=== PATIENT | female | born 1955 | race Caucasian/White ===

== ENCOUNTER 2021-06-24 13:19 | Emergency (ER) | payer MEDICARE, OTHER ==
--- NOTE | 2021-06-24 13:55 | EDM.PDOC ---
<Jelly Mclean - Last Filed: 06/24/21 14:54> ED HPI GENERAL MEDICAL PROBLEM - General Chief Complaint: General Stated Complaint: weakness Time Seen by Provider: 06/24/21 13:42 Source of Information: Reports: Patient, Family (Sister ) History Limitations: Reports: No Limitations - History of Present Illness INITIAL COMMENTS - FREE TEXT/NARRATIVE: 66F w/o medical history presents with 12 hours of new onset dizziness, lightheaded. No trauma or fevers. Sudden onset at 0100 this morning, remained at 0400am, unrelenting. Most severe when she has a position change, does occur when not changing position. Denies vomiting, palpitation, abdominal pain, dysuria, hematochezia, or melena. She does not take any prescription medications, multiple vitamin supplements. No abnormal findings at follow up with PCP one month ago. She is accompanied by her sister. 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 No tobacco or drug use. Completed 30 days of doxycycline last week for two patches of new onset pale skin changes, no final diagnosis of that condition. Onset: Today, Sudden Onset Date: 06/24/21 Onset Time: 01:00 Duration: Constant Location: Reports: Head - Related Data Allergies Allergy/AdvReac Type Severity Reaction Status Date / Time No Known Allergies Allergy Verified 06/24/21 14:14 Home Meds: Home Meds . [No Known Home Meds] 06/24/21 [History] Past Medical History - Past Health History Medical/Surgical History: Denies Medical/Surgical History - Past Surgical History Musculoskeletal Surgical History: Reports: Other (See Below) (Right ankle surgery) ED ROS GENERAL - Review of Systems Review Of Systems: See Below Constitutional: Reports: No Symptoms. Denies: Weakness, Fatigue HEENT: Denies: Ear Pain, Eye Pain, Hearing Loss, Nosebleed, Nose Pain, Throat Pain Respiratory: Reports: No Symptoms. Denies: Shortness of Breath Cardiovascular: Reports: Lightheadedness. Denies: Chest Pain, Claudication, Dyspnea on Exertion, Palpitations, Syncope Endocrine: Denies: Fatigue GI/Abdominal: Denies: Abdominal Pain, Bloody Stool, Hematochezia, Melena, Nausea : Denies: Dysuria, Flank Pain Musculoskeletal: Denies: Neck Pain, Shoulder Pain, Back Pain, Joint Pain Skin: Denies: Cyanosis, Jaundice, Rash Neurological: Reports: Dizziness, Difficulty Walking. Denies: Confusion, Paresthesia, Syncope, Trouble Speaking Psychiatric: Denies: Agitation ED EXAM, GENERAL - Physical Exam Exam: See Below Exam Limited By: No Limitations General Appearance: Alert, WD/WN, No Apparent Distress, Anxious Ears: Hearing Grossly Normal, Normal TMs Ear Exam: Bilateral Ear: TM normal Nose: Normal Inspection Throat/Mouth: Normal Inspection Head: Atraumatic, Normocephalic Neck: Normal Inspection, Supple, Non-Tender Respiratory/Chest: No Respiratory Distress, Lungs Clear, Normal Breath Sounds, No Accessory Muscle Use Cardiovascular: Normal Peripheral Pulses, Regular Rate, Rhythm, Bradycardia (Sinus on EKG ). No: No JVD, No Murmur Peripheral Pulses: 2+: Radial (L), Radial (R) GI/Abdominal: Soft, Non-Tender Back Exam: Normal Inspection Extremities: Normal Inspection, Normal Range of Motion Neurological: Alert, Oriented, CN II-XII Intact, Normal Cognition, Other (Small beats of nystagus when looking to extreme left ) Psychiatric: Normal Affect, Anxious Skin Exam: Warm, Dry #1 Interpretation EKG Date: 06/24/21 Time: 14:34 Rhythm: NSR Rate (Beats/Min): 60 Only: Normal P-Wave: Enlarged QRS: Normal ST-T: Normal QT: Normal Comparison: NA - No Prior EKG (Low voltage, sinus rhythm) Course - Re-Assessments/Exams Free Text/Narrative Re-Assessment/Exam: 06/24/21 14:36 No acute changes on EKG. CBC w/o anemia or leukocytosis. Minda-Halpike does not induce nystagmus or significant worsening of condition. Free Text/Narrative Re-Assessment/Exam: 06/24/21 14:54 CMP normal. UA without signs of infection. Trial of meclizine, declines zofran. Free Text/Narrative Re-Assessment/Exam: 06/24/21 14:57 orthostatic vitals: 110/77 --> 103/76 --> 113/70 Departure - Departure Time of Disposition: 14:58 Disposition: Home, Self-Care 01 Condition: Good Clinical Impression: Benign paroxysmal positional vertigo - Discharge Information *PRESCRIPTION DRUG MONITORING PROGRAM REVIEWED*: No *COPY OF PRESCRIPTION DRUG MONITORING REPORT IN PATIENT ADAL: No Instructions: How to Perform the Fox Maneuver, Benign Positional Vertigo Forms: ED Department Discharge Additional Instructions: Follow up with your primary care provider next week if symptoms do not improve. You blood work today does not show Anemia, low electrolytes, or poorly functioning kidneys' or liver. Your urine does not show infection. You can try over the counter Meclizine. Try home Eply maneuvers. Return to Emergency Department over the weekend if fevers > 102F do not respond to Tylenol, severe chest pain, severe headache pain with vision changes, or unable to control/move limbs. - Assessment/Plan Assessment:: Vague complain of dizziness with no other symptoms or acute changes in medical condition. BPPV vs electrolyte abnormality, dehydration, early infection, cardiac arrhythmia. Plan: EKG, CMP, CBC, UA reviewed and negative for abnormalities requiring further evaluation. Orthostatic vitals without changes greater than 10mm Hg. Trial Meclizine. Patient safe for discharge home, follow up with PCP. Patient provided with education on home Eply maneuvers. <Sage Keys - Last Filed: 06/24/21 16:16> Course - Vital Signs Last Recorded V/S: Last Vital Signs Temp 99.2 F 06/24/21 13:42 Pulse 66 06/24/21 13:42 Resp 16 06/24/21 13:42 BP 118/84 06/24/21 13:42 Pulse Ox 98 06/24/21 13:42 Orthostatic Blood Pressure [ 103/76 Standing] Orthostatic Blood Pressure [ 110/77 Sitting] Orthostatic Blood Pressure [ 113/70 Supine] - Orders/Labs/Meds Orders: Active Orders 24 hr Category Date Time Status Discharge Patient [ADT] Routine ADT 06/24/21 15:07 Ordered Labs: Laboratory Tests 06/24/21 06/24/21 06/24/21 Range/Units 13:22 14:17 14:17 WBC 5.3 (5.0-10.0) 10^3/uL RBC 4.63 (4.2-5.4) 10^6/uL Hgb 12.8 (12.0-16.0) g/dL Hct 39.4 (37.0-47.0) % MCV 85.1 (80-100) fL MCH 27.6 (27.0-34.0) pg MCHC 32.5 L (33.0-35.0) g/dL Plt Count 232 (150-450) 10^3/uL Sodium 143 (136-145) mmol/L Potassium 3.9 (3.5-5.1) mmol/L Chloride 106 (98-107) mmol/L Carbon Dioxide 28 (21-32) mmol/L Anion Gap 12.9 (7-13) mEq/L BUN 14 (7-18) mg/dL Creatinine 0.70 (0.55-1.02) mg/dL Est Cr Clr Drug Dosing 82.08 mL/min Estimated GFR (MDRD) > 60 BUN/Creatinine Ratio 20.0 (No establ ref range) Glucose 93 (70-99) mg/dL Calcium 8.8 (8.5-10.1) mg/dL Total Bilirubin 0.5 (0.2-1.0) mg/dL AST 17 (15-37) U/L ALT 22 (14-59) U/L Alkaline Phosphatase 67 (46-116) U/L Total Protein 7.0 (6.4-8.2) g/dL Albumin 4.0 (3.4-5.0) g/dL Globulin 3.0 Albumin/Globulin Ratio 1.3 Urine Color Yellow (YELLOW) Urine Appearance Clear (CLEAR) Urine pH 7.0 (5.0-9.0) Ur Specific [place] 1.020 (1.005-1.030) Urine Protein Negative (NEGATIVE) Urine Glucose (UA) Negative (NEGATIVE) Urine Ketones Negative (NEGATIVE) Urine Occult Blood Trace-lysed H (NEGATIVE) Urine Nitrite Negative (NEGATIVE) Urine Bilirubin Negative (NEGATIVE) Urine Urobilinogen 0.2 (0.2-1.0) mg/dL Ur Leukocyte Esterase Negative (NEGATIVE) Urine RBC Not seen (0-5) /HPF Urine WBC Not seen (0-5/HPF) /HPF Ur Epithelial Cells Rare (NOT SEEN) /HPF Meds: Medications Discontinued Medications Generic Name Dose Route Start Last Admin Trade Name Freq PRN Reason Stop Dose Admin Meclizine HCl 12.5 mg 06/24/21 14:50 06/24/21 14:58 Meclizine 12.5 Mg Tab PO 06/24/21 14:51 12.5 mg ONETIME ONE Administration Ondansetron HCl 4 mg 06/24/21 14:39 06/24/21 14:50 Ondansetron 4 Mg Tab.Dis PO 06/24/21 14:40 Not Given ONETIME ONE - Re-Assessments/Exams Free Text/Narrative Re-Assessment/Exam: 06/24/21 I saw and evaluated the patient. Discussed with resident and agree with residents findings and plan as documented in the residents note. Sepsis Event Note (ED) - Focused Exam Vital Signs: Vital Signs Temp Pulse Resp BP Pulse Ox 06/24/21 13:42 99.2 F 66 16 118/84 98
[2021-06-24] MEDS ORDERED: Ondansetron 4 MG Tab.DIS PO ONE (14:39)
[2021-06-24 14:43] LABS: ANION GAP 12.9 mEq/L (7-13); CHLORIDE,CL 106 mmol/L (98-107); SODIUM,NA 143 mmol/L (136-145)
[2021-06-24] MEDS ORDERED: Meclizine 12.5 MG Tab PO ONE (14:50)
== END 2021-06-24 15:17 | disposition home or self-care (01) ==
LOC: DL.ED 13:19
DX: H81.10 Benign paroxysmal vertigo, unspecified ear (principal)
CPT/HCPCS: 36415; 80053; 81001; 85027; 93005; 99284; A9270

== ENCOUNTER 2021-12-12 05:27 | Day surgery (SDC) | payer MEDICAID, MEDICARE, OTHER ==
[~2021-12-12 05:27] MED LIST: Dextrose 5%-0.45% NaCl 1,000 ML IV SCH; Sodium Chloride 0.9% 10 ML Syringe FLUSH PRN; Sodium Chloride 0.9% 10 ML Syringe FLUSH SCH
[2021-12-12] MEDS ORDERED: fentaNYL 100 MCG/2 ML SDV IV ONE ×6 (05:28→07:15)
[2021-12-12] MEDS ORDERED: Midazolam 1 MG/ML 2 ML SDV IV ONE ×7 (05:28→07:08)
[2021-12-12] MEDS ORDERED: Dextrose 5%-0.45% NaCl 1,000 ML IV SCH (05:30)
[2021-12-12] MEDS ORDERED: Sodium Chloride 0.9% 10 ML Syringe FLUSH PRN (05:30)
[2021-12-12] MEDS ORDERED: Midazolam 1 MG/ML 2 ML SDV ONE (05:30)
[2021-12-12] MEDS ORDERED: fentaNYL 100 MCG/2 ML SDV ONE (05:31)
== END 2021-12-12 09:05 | disposition home or self-care (01) ==
LOC: DL.ENDO 05:27
PROVIDERS: ATTEND Internal Medicine Gastroenterology
DX: Z12.11 Encounter for screening for malignant neoplasm of colon (principal); Z98.890 Other specified postprocedural states; Z90.49 Acquired absence of other specified parts of digestive tract; Z01.812 Encounter for preprocedural laboratory examination; Z20.822 Contact with and (suspected) exposure to COVID-19
CPT/HCPCS: J2250; J3010; J7042; U0002